=== PATIENT | male | born 1975 | race Caucasian/White ===

== ENCOUNTER 2020-01-07 16:45 | Emergency (ER) | payer BC ==
[~2020-01-07] VITALS: Ht 180.3 cm; Wt 91.2 kg
[~2020-01-07 16:45] MED LIST: CYCLOBENZAPRINE10 MG PO; FLEXERIL10 MG PO; IBU800 M1 PO; KEFLEX500 MG PO; MOTRIN800 MG PO; NKHM; PHENERGAN25 M1 PO; PREDNISONE10 MG PO; TYLENOL W/CODEI1 TA2 PO; VICODIN 5/500 505 MG PO; VICODIN 500 MG-1 TAB PO
[2020-01-07] MEDS ORDERED: NAPROSYN500 MG PO (20:09)
== END 2020-01-07 20:20 | disposition home or self-care (01) ==
LOC: ED 16:45
DX: R09.1 Pleurisy (principal); Z87.891 Personal history of nicotine dependence; Z79.899 Other long term (current) drug therapy

== ENCOUNTER → 2020-11-10 | Outpatient (CLI) | payer BC ==
[~2020-11-10] MED LIST changes: +NAPROSYN500 MG PO
== END | disposition home or self-care (01) ==
LOC: COVID19 13:01
PROVIDERS: ATTEND Student in an Organized Health Care Education/Training Program
DX: Z20.828 Contact with and (suspected) exposure to other viral communicable diseases (principal)

== ENCOUNTER 2021-10-04 16:12 | Emergency (ER) | payer BC ==
[~2021-10-04] VITALS: Ht 180.3 cm; Wt 93.0 kg
== END 2021-10-04 18:32 | disposition left against medical advice (07) ==
LOC: ED 16:12
DX: R07.81 Pleurodynia (principal); Z53.21 Procedure and treatment not carried out due to patient leaving prior to being seen by health care provider

== ENCOUNTER → 2021-10-28 | Outpatient (CLI) | payer BC | END | disposition home or self-care (01) | LOC: COVID19 16:46 | PROVIDERS: ATTEND Internal Medicine | DX: Z11.52 Encounter for screening for COVID-19 (principal) ==

== ENCOUNTER → 2021-11-15 | Outpatient (CLI) | payer BC | END | disposition home or self-care (01) | LOC: COVID19 16:57 | PROVIDERS: ATTEND Internal Medicine | DX: U07.1 COVID-19 (principal) ==

== ENCOUNTER → 2022-12-19 | Outpatient (CLI) | payer BC ==
[2022-12-19 11:52] LABS: BILIRUBIN Negative (Negative); BLOOD Negative (Negative); CLARITY Clear (Clear); COLOR Yellow (Yellow); GLUCOSE Negative (Negative); KETONE Trace (Negative); LEUKO ESTERASE Trace (Negative); NITRITE Negative (Negative); PH 5.5 (4.5-8.0)
[2022-12-19 11:53] LABS: BASO # 0.1 10*3/uL (0.0-0.1); BASO % 0.8 % (0.0-1.0); EOS # 0.1 10*3/uL (0.0-0.4); EOS % 1.8 % (1.0-4.0); HEMATOCRIT 44.3 % (42.0-52.0); LYMPH # 2.6 10*3/uL (1.3-4.4); MEAN CELL VOLUME 94.1 fl (80.0-94.0); MEAN CORPUSCULAR HGB 31.6 pg (27.0-31.0); MEAN CORPUSCULAR HGB CONC 33.6 g/dl (33.0-37.0); MONO # 0.7 10*3/uL (0.1-1.0); MONO % 9.1 % (3.0-9.0); NEUT # 4.1 10*3/uL (2.3-7.9); NEUT % 53.8 % (47.0-73.0); PLATELET COUNT AUTOMATED 284 10*3/uL (130-400); RED BLOOD COUNT 4.71 10*6/uL (4.50-5.90); RED CELL DISTRI WIDTH 11.7 % (0-14.5); RETICULOCYTE % 1.97 % (0.50-2.50); WHITE BLOOD COUNT 7.7 10*3/uL (4.8-10.8)
[2022-12-19 12:12] LABS: BACTERIA TRACE; EPITHELIAL CELLS 0-2; RBC 0-2 rbc/hpf (0-2); WBC 0-2 wbc/hpf (0-5)
[2022-12-19 12:13] LABS: ALKALINE PHOSPHATASE 93 U/L (46-116); BUN 11 mg/dl (9-23); CHLORIDE 104 mmol/L (98-107); CHOLESTEROL 201 mg/dL (<200); GAMMA GLUTAMYL TRANSPEPTIDASE 117 U/L (0-73); LDL CHOLESTEROL 125 mg/dL (9-159); POTASSIUM 4.4 mmol/L (3.4-5.1); SGPT/ALT 121 U/L (10-49); T3 UPTAKE 20.2 % (22.4-36.7); THYROID STIM HORMONE (HS) 15.121 uIU/ml (0.550-4.780); THYROXINE (T4) TOTAL 4.9 ug/dl (4.5-10.9); TOTAL PROTEIN 7.8 gm/dL (6.0-8.0); TRIGLYCERIDES 213 mg/dl (<150); URIC ACID 7.4 mg/dL (3.7-9.2)
[2022-12-19 12:44] LABS: VITAMIN D, 25-HYDROXY 16.9 ng/mL (30-100)
== END | disposition home or self-care (01) ==
LOC: LAB 11:14
PROVIDERS: ATTEND Family Medicine
DX: R79.89 Other specified abnormal findings of blood chemistry (principal); R53.83 Other fatigue; E78.5 Hyperlipidemia, unspecified; E55.9 Vitamin D deficiency, unspecified

== ENCOUNTER → 2023-02-03 | Outpatient (CLI) | payer BC | END | disposition home or self-care (01) | LOC: US 07:30 | PROVIDERS: ATTEND Family Medicine | DX: K76.0 Fatty (change of) liver, not elsewhere classified (principal); E03.9 Hypothyroidism, unspecified; N13.30 Unspecified hydronephrosis; R16.1 Splenomegaly, not elsewhere classified; E04.9 Nontoxic goiter, unspecified ==

== ENCOUNTER → 2023-04-17 | Outpatient (CLI) | payer BC | LOC: CT 03-28 00:16 | PROVIDERS: ATTEND Urology | DX: N28.81 Hypertrophy of kidney (principal); K76.0 Fatty (change of) liver, not elsewhere classified ==

== ENCOUNTER → 2023-04-28 | Outpatient (CLI) | payer BC ==
[2023-04-28 17:33] LABS: BILIRUBIN Negative (Negative); BLOOD Negative (Negative); CLARITY Clear (Clear); COLOR Yellow (Yellow); GLUCOSE Negative (Negative); KETONE Trace (Negative); LEUKO ESTERASE Negative (Negative); NITRITE Negative (Negative); PH 5.5 (4.5-8.0)
[2023-04-28 17:45] LABS: MUCOUS 1+
== END | disposition home or self-care (01) ==
LOC: LAB 17:08
PROVIDERS: ATTEND Urology
DX: N13.30 Unspecified hydronephrosis (principal)